=== PATIENT | female | born 1995 | race African-American/Black ===

== ENCOUNTER 2025-01-06 19:09 | Emergency (ER) | payer OTHER, MEDICAID ==
[~2025-01-06] VITALS: Ht 160 cm; Wt 68.0 kg
[2025-01-06 19:40] VITALS: O2SAT 99
[2025-01-06] MEDS: IBUPROFEN 600MG TABLET PO ONE (21:04)
[2025-01-06] MEDS: CYCLOBENZAPRINE 10MG TABLET PO ONE (21:04)
[2025-01-06] MEDS ORDERED: CYCL10TA21 MT (21:13)
[2025-01-06] MEDS ORDERED: IBUP-1455 MT (21:13)
[2025-01-06 21:32] VITALS: BP 103/65; PULSE 60; RESP 16; TEMP 36.9; O2SAT 100
== END 2025-01-06 21:36 | disposition home or self-care (01) ==
LOC: ER 19:09
DX: S09.90XA Unspecified injury of head, initial encounter (principal); G43.909 Migraine, unspecified, not intractable, without status migrainosus; M54.2 Cervicalgia; M54.9 Dorsalgia, unspecified; V89.2XXA Person injured in unspecified motor-vehicle accident, traffic, initial encounter; Y93.89 Activity, other specified; Y92.89 Other specified places as the place of occurrence of the external cause; Y99.8 Other external cause status
CPT/HCPCS: 71045; 81025; 99283